=== PATIENT | female | born 1985 | race Caucasian/White ===

== ENCOUNTER 2019-04-27 00:38 | Emergency (ER) | payer MEDICAID ==
[~2019-04-27] VITALS: Ht 152.4 cm; Wt 88.9 kg
[~2019-04-27 00:38] MED LIST: CEPH500C16 PO; CLIN150C1 PO; IBUP-974 PO
[2019-04-27 00:43] VITALS: BP 148/104
[2019-04-27 01:15] VITALS: BP 148/104
[2019-04-27 01:19] LABS: BASOPHILS # (AUTO) 0.1 K/uL (0.00-0.22); BASOPHILS % (AUTO) 0.5 % (0.0-2.0); EOSINOPHILS # (AUTO) 0.1 K/uL (0-0.4); EOSINOPHILS % (AUTO) 0.7 % (0.0-4.0); HEMATOCRIT 39.6 % (36-48); HEMOGLOBIN 12.8 g/dL (12.0-16.0); LYMPHOCYTES # (AUTO) 2.1 K/uL (2.5-16.5); LYMPHOCYTES % (AUTO) 21.7 % (20.5-51.1); MEAN CORPUSCULAR HEMOGLOBIN 28 pg (27-31); MEAN CORPUSCULAR HGB CONC 32 g/dL (33-37); MEAN CORPUSCULAR VOLUME 85.7 fL (80-94); MONOCYTES # (AUTO) 0.8 K/uL (0.8-1.0); MONOCYTES % (AUTO) 7.7 % (1.7-9.3); NEUTROPHILS # (AUTO) 6.8 K/uL (1.8-7.7); NEUTROPHILS % (AUTO) 69.4 % (42.2-75.2); PLATELET COUNT (AUTO) 237 K/uL (140-450); RED BLOOD CELL COUNT(AUTO) 4.62 MIL/uL (4.20-5.40); RED CELL DISTRIBUTION WIDTH 13.3 % (11.6-13.7); WHITE BLOOD COUNT (AUTO) 9.9 K/uL (4.8-10.8)
[2019-04-27 01:33] LABS: ALBUMIN 3.7 g/dL (3.4-5.0); CARBON DIOXIDE 28.4 mmol/L (21-32); CREATININE 0.8 mg/dL (0.6-1.3); POTASSIUM 3.4 mmol/L (3.5-5.1); TOTAL BILIRUBIN 0.3 mg/dL (0.0-1.0)
[2019-04-27 01:35] LABS: PROTHROMBIN TIME 9.7 secs (10.8-13.4)
== END 2019-04-27 02:26 | disposition home or self-care (01) ==
LOC: MED 00:38
DX: N94.6 Dysmenorrhea, unspecified (principal); N39.0 Urinary tract infection, site not specified; I10 Essential (primary) hypertension; Z79.2 Long term (current) use of antibiotics; Z79.1 Long term (current) use of non-steroidal anti-inflammatories (NSAID); Z88.0 Allergy status to penicillin
CPT/HCPCS: 36415; 76856; 80053; 81002; 81025; 82948; 85025; 85610; 85730; 99284; Q0092

== ENCOUNTER 2019-07-29 21:33 | Emergency (ER) | payer MEDICAID ==
--- NOTE | 2019-07-29 21:55 | NUR ---
PATIENT CALLED TO BE TRIAGE NO RESPONSE. PATIENT LEFT WITHOUT BEING SEEN BY DR. RUIZ. NO FURTHER CARE PROVIDED FOR PATIENT.
--- NOTE | 2019-07-29 22:00 | NUR ---
CALLED FOR THE SECOND TIME NO RESPONSE
--- NOTE | 2019-07-29 22:05 | NUR ---
CALLED FOR THE THIRD TIME NO RESPONSE.
== END 2019-07-29 21:55 | disposition left against medical advice (07) ==
LOC: MED 21:33
DX: Z53.21 Procedure and treatment not carried out due to patient leaving prior to being seen by health care provider (principal)